=== PATIENT | female | born 1950 | race Two or more races ===

== ENCOUNTER 2016-11-27 07:17 | Observation (INO) | payer OTHER ==
[2016-11-27 07:21] VITALS: BMI 24.5
[2016-11-27] MEDS ORDERED: SODIUM CHLORIDE 500 ML IV STA (07:49)
--- NOTE | 2016-11-27 07:54 | PDOC ---
History of Present Illness - General Chief Complaint: Lightheaded Stated Complaint: SOB Time Seen by Provider: 11/27/16 07:38 - History of Present Illness Initial Comments: 11/27/16 07:51 66-year-old female history of hypertension and hyperlipidemia presents with 3 days of intermittent shortness of breath associated with lightheadedness when ambulating. She denies any chest pain. She reports the shortness of breath is worse at night and also worse when she sits up. Denies any exertional component of her shortness of breath. Denies fevers, chills, coughing. Has never had similar symptoms in the past. Denies any associated nausea, vomiting, diaphoresis. Denies lower extremity edema. She comes in today because she feels her shortness of breath is becoming more consistent. She reports she does not have a primary care doctor. Denies any surgeries in the past. Denies any asthma history. Denies any recent travel or long trips. Past History - Past Medical History Allergies/Adverse Reactions: Allergies Allergy/AdvReac Type Severity Reaction Status Date / Time No Known Allergies Allergy Verified 11/27/16 07:19 Home Medications: Ambulatory Orders Unobtainable [Unobtainable] 11/27/16 HTN: Yes Hypercholesterolemia: Yes - Psycho/Social/Smoking Cessation Hx Anxiety: No Suicidal Ideation: No Smoking History: Never smoked Have you smoked in the past 12 months: No Information on smoking cessation initiated: No Hx Alcohol Use: No Drug/Substance Use Hx: No Substance Use Type: None Review of Systems - Review of Systems Is the patient limited Tuvaluan proficient: No Constitutional: No: Symptoms Reported, See HPI, Chills, Diaphoresis, Fever, Loss of Appetite, Malaise, Night Sweats, Weakness, Weight Stable, Unintentional Wgt. Loss, Unexplained wgt Loss, Other HEENTM: No: Symptoms Reported, See HPI, Eye Pain, Blurred Vision, Tearing, Recent change in vision, Double Vision, Cataracts, Ear Pain, Ocular Prothesis, Ear Discharge, Nose Pain, Nose Congestion, Tinnitus, Nose Bleeding, Hearing Loss , Throat Pain, Throat Swelling, Mouth Pain, Dental Problems, Difficulty Swallowing, Mouth Swelling, Other Respiratory: Yes: Shortness of Breath, SOB at Rest Cardiac (ROS): Yes: Lightheadedness ABD/GI: No: Symptoms Reported, See HPI, Abdominal Distended, Abd. Pain w/ defecation, Blood Streaked Bowels, Constipated, Diarrhea, Difficulty Swallowing , Nausea, Poor Appetite, Poor Fluid Intake, Rectal Bleeding, Vomiting, Indigestion, Abdominal cramping, Tarry Stools, Other : No: Symptoms Reported, See HPI, Burning, Dysuria, Discharge, Frequency, Flank Pain, Hematuria, Incontinence, Pain, Urgency, Testicular Mass, Testicular Swelling, Lesions, Testicular Pain, Other Musculoskeletal: No: Symptoms Reported, See HPI, Back Pain, Gout, Joint Pain, Joint Swelling, Muscle Pain, Muscle Weakness, Neck Pain, Joint Stiffness, Other Integumentary: No: Symptoms Reported, See HPI, Bruising, Change in Color, Change in Hair/Nails, Dryness, Erythema, Flushing, Lesions, Lumps, Pallor, Pruritus, Rash, Sweating, Other Neurological: Yes: Dizziness Psychiatric: No: Anxiety, Depression, Frequent Crying, Stressors, Sleep Pattern Change, Emotional Problems, Mood Swings, Change in Appetite, Other Hematologic/Lymphatic: No: Symptoms Reported, See HPI, Anemia, Blood Clots, Easy Bleeding, Easy Bruising, Bleeding Diathesis, Lymph Node Abnormalities, Swollen Glands, Other All Other Systems: Reviewed and Negative *Physical Exam - Vital Signs Last Vital Signs Temp Pulse Resp BP Pulse Ox 98.2 F 64 18 164/97 100 11/27/16 07:19 11/27/16 07:19 11/27/16 07:19 11/27/16 07:19 11/27/16 07:19 - Physical Exam General Appearance: Yes: Nourished, Other (NAD) HEENT: positive: EOMI, PENELOPE, Normal ENT Inspection, Normal Voice, Symmetrical, TMs Normal, Pharynx Normal Neck: positive: Trachea midline, Supple Respiratory/Chest: positive: Lungs Clear, Normal Breath Sounds Cardiovascular: positive: Regular Rhythm, Bradycardia (rate 50s) Gastrointestinal/Abdominal: negative: Normal Bowel Sounds, Tender, Flat, Soft, Organomegaly, Pulsatile Mass, Increased Bowel Sounds, Decreased BS, Protuberent , Distended, Guarding, Rebound, Tenderness, Hernia, Mass, Hepatomegaly, Spleenomegaly, Other Musculoskeletal: negative: Normal Inspection, CVA Tenderness, CVA Tenderness (R) , CVA Tenderness (L), Decreased Range of Motion, Muscle Spasm, Vertebral Tenderness, Other Extremity: negative: Normal Capillary Refill, Normal Inspection, Normal Range of Motion, Tender (no LE edema), Pelvis Stable, Coldness, Cyanosis, Delayed Capillary Refill, Pedal Edema, Swelling, Calf Tenderness, Erythema, Inflammation , Other Neurologic: negative: lab assistant II-XII NML intact, Fully Oriented, Alert, Normal Mood/ Affect, Normal Response, Motor Strength 5/5, Abnormal Cranial NS, Respond to painful stimul, Responsive, EOM Palsy, Facial Droop, Numbness, Sensory Deficit, Finger to Nose, Confused, Disoriented, Depressed Affect, Babinski, Other Heart Score/ECG Review - History History: Slightly suspicious - Electrocardiogram EKG: Non specific repolarization disturbance - Age Age: 45-65 - Risk Factors Risk Factors Heart Score: Yes Hx Hypercholesterolemia, Yes Hx Hypertension Based on the list above the patient has:: 1-2 risk factors - Troponin Troponin: </= normal limit - Score Heart Score - Total: 3 #1 ECG reviewed & interpreted by me at: 08:00 11/27/16 08:07, sinus aleksandra, rate 52, normal axis and intervals, no CHRISTOS, T wave flattening lead III 11/27/16 08:07 ED Treatment Course - LABORATORY CBC & Chemistry Diagram: 11/27/16 08:17 11/27/16 08:17 Medical Decision Making - Medical Decision Making 11/27/16 08:07 66-year-old female hx of hypertension and hyperlipidemia presents with 3 days of intermittent shortness of breath that has become more constant over the last day. Shortness of breath associated with lightheadedness that exertion. Differential includes acute coronary syndrome with atypical presentation versus pneumonia versus PE. On exam, no wheezing or crackles to suggest asthma or PNA. Pt with no PE risk factors of recent surgery or immobility. -cbc, cmp, trop, dimer -cxr -reassess 11/27/16 16:34 Labs remarkable for elevated d-dimer. Troponin negative. Chest x-ray negative. CT PE study also negative. Patient continues to complain of intermittent shortness of breath and lightheadedness. Will admit FOR further cardiac monitoring and management. *DC/Admit/Observation/Transfer Diagnosis at time of Disposition: Shortness of breath at rest - Discharge Dispostion Condition at time of disposition: Stable Admit: Yes - Attestations Physician Attestion: 11/27/16 16:35 I, Dr. Loy Sotomayor MD, attest that this document has been prepared under my direction and personally reviewed by me in its entirety. I further attest, that it accurately reflects all work, treatment, procedures and medical decision -making performed by me.
[2016-11-27 08:32] LABS: BASOPHIL 1.3 % (0-2.0); EOSINOPHIL 2.3 % (0-4.5); MCH 30.1 pg (25.7-33.7); MEAN CELL VOLUME 88.5 fl (80-96); MEAN PLT VOLUME 8.9 fl (7.5-11.1); NEUTROPHILS 65.9 % (42.8-82.8); PLATELET COUNT 274 K/MM3 (134-434); RDW 13.8 % (11.6-15.6); WHITE BLOOD COUNT 10.3 K/mm3 (4.0-10.0)
[2016-11-27 08:50] LABS: ALBUMIN 3.8 g/dl (3.4-5.0); ANION GAP 6 (8-16); BILIRUBIN,TOTAL 0.6 mg/dL (0.2-1.0); CALCIUM 9.3 mg/dL (8.5-10.1); CO2 28 mmol/L (21-32); CREATININE 1.1 mg/dL (0.55-1.02); GLUCOSE,RANDOM 90 mg/dL (74-106); MAGNESIUM 2.1 mg/dL (1.8-2.4); SGOT/AST 21 U/L (15-37); SGPT/ALT 35 U/L (12-78); TOT PROT 7.3 g/dl (6.4-8.2)
[2016-11-27 08:58] LABS: ALK PHOS 74 U/L (45-117); CPK 118 IU/L (26-192); THYROID STIMULATING HORMONE 3.15 uIU/ml (0.358-3.74); TROPONIN I < 0.02 ng/ml (0.00-0.05)
[2016-11-27 09:55] LABS: URINE APPEARANCE CLEAR; URINE BILIRUBIN NEGATIVE (NEGATIVE); URINE BLOOD 1+ (NEGATIVE); URINE COLOR COLORLESS; URINE GLUCOSE (UA) NEGATIVE (NEGATIVE); URINE KETONE NEGATIVE (NEGATIVE); URINE LEUK ESTERASE NEGATIVE (NEGATIVE); URINE NITRITE NEGATIVE (NEGATIVE); URINE PROTEIN NEGATIVE (NEGATIVE); URINE UROBILINOGEN NEGATIVE mg/dL (0.2-1.0)
[2016-11-27 10:26] LABS: URINE MUCUS RARE; URINE RBC 1 /hpf (0-3); URINE WBC 1 /hpf (3-5)
--- NOTE | 2016-11-27 14:39 | EKG ---
Test Reason : Blood Pressure : / mmHG Vent. Rate : 052 BPM Atrial Rate : 052 BPM P-R Int : 162 ms QRS Dur : 086 ms QT Int : 438 ms P-R-T Axes : 005 002 030 degrees QTc Int : 407 ms SINUS BRADYCARDIA OTHERWISE NORMAL ECG NO PREVIOUS ECGS AVAILABLE Confirmed by MELINDA KUMAR MD ([id number]) on 11/27/2016 2:39:43 PM Referred By: Confirmed By:MELINDA KUMAR MD
--- NOTE | 2016-11-27 14:57 | HP ---
CHIEF COMPLAINT: 3 days intermittent SOB and lightheadedness PCP: HISTORY OF PRESENT ILLNESS: 66 y/o F with PMH HTN, HLD, who presents to ED for SOB and lightheadedness over the past three days. During this time, pt has intermittently felt as if she could not breathe, described as a choking sensation. Her SOB has been alleviated by lying down and is worsened by sitting up. Pt also has felt dizzy when she walks 5-6 blocks to the store, but has never felt as if she would pass out; she has just felt off balance and as if her heart was racing during these instances. She has had a dry cough. Pt mentioned that she has had a lot of stress recently, as her has liver cancer and she lost her mother this past month. She has recently felt very emotional and has been overexerting herself at home. Pt decided to come in today for her symptoms, since she was not feeling "like herself," and wanted to figure out what was going on. She was at [facility] last week for similar symptoms. Denies recent travel, fever, chills, chest pain, melena, hematochezia, dysuria, long travel, lower extremity pain or swelling, nightsweats, weight changes. ER course was notable for: (1) IV NS (2) EKG: sinus bradycardia (3) Recent Travel: none PAST MEDICAL HISTORY: HTN, HLD PAST SURGICAL HISTORY: none Social History: -Sister in law visits frequently and often smokes in the bathroom, possible second hand smoke exposure Smoking: denies Alcohol: denies Drugs: denies Family History: -Mother this past month from [place] -Does not know father -Brother: HLD, DM Allergies No Known Allergies Allergy (Verified 11/27/16 07:19) HOME MEDICATIONS: Home Medications Medication Instructions Recorded Unobtainable [Unobtainable] 11/27/16 -Pt does not know name of medications, but takes meds for her HTN, HLD. -She does not know the name of the pharmacy she goes to REVIEW OF SYSTEMS CONSTITUTIONAL: Absent: fever, chills, diaphoresis, generalized weakness, malaise, loss of appetite, weight change HEENT: Absent: rhinorrhea, nasal congestion, throat pain, throat swelling, difficulty swallowing, mouth swelling, ear pain, eye pain, visual changes CARDIOVASCULAR: Absent: chest pain, syncope, palpitations, irregular heart rate, lightheadedness , peripheral edema RESPIRATORY: Absent: cough, shortness of breath, dyspnea with exertion, orthopnea, wheezing, stridor, hemoptysis GASTROINTESTINAL: Absent: abdominal pain, abdominal distension, nausea, vomiting, diarrhea, constipation, melena, hematochezia GENITOURINARY: Absent: dysuria, frequency, urgency, hesitancy, hematuria, flank pain, genital pain MUSCULOSKELETAL: Absent: myalgia, arthralgia, joint swelling, back pain, neck pain SKIN: Absent: rash, itching, pallor HEMATOLOGIC/IMMUNOLOGIC: Absent: easy bleeding, easy bruising, lymphadenopathy, frequent infections ENDOCRINE: Absent: unexplained weight gain, unexplained weight loss, heat intolerance, cold intolerance NEUROLOGIC: Absent: headache, focal weakness or paresthesias, dizziness, unsteady gait, seizure, mental status changes, bladder or bowel incontinence PSYCHIATRIC: Absent: anxiety, depression, suicidal or homicidal ideation, hallucinations. PHYSICAL EXAMINATION Vital Signs - 24 hr 11/27/16 11/27/16 07:19 08:39 Temperature 98.2 F Pulse Rate 64 66 Respiratory 18 Rate Blood Pressure 164/97 O2 Sat by Pulse 100 99 Oximetry (%) GENERAL: Awake, alert, and fully oriented, in no acute distress. HEAD: Normal with no signs of trauma. EYES: Pupils equal, round and reactive to light, extraocular movements intact, sclera anicteric, conjunctiva clear. EARS, NOSE, THROAT: oropharynx clear without exudates. Moist mucous membranes. NECK: Normal range of motion, supple without lymphadenopathy, JVD, or masses. LUNGS: Breath sounds equal, clear to auscultation bilaterally. No wheezes, and no crackles. No accessory muscle use. HEART: Regular rate and rhythm, normal S1 and S2 without murmur, rub or gallop. ABDOMEN: Soft, nontender, not distended, normoactive bowel sounds, no guarding, no rebound, no masses. MUSCULOSKELETAL: Normal range of motion at all joints. No bony deformities or tenderness. No CVA tenderness. UPPER EXTREMITIES: 2+ radial pulses, warm, well-perfused. No cyanosis. No clubbing. No peripheral edema. LOWER EXTREMITIES: 2+ posterior tibial pulses, warm, well-perfused. No calf tenderness. No peripheral edema. NEUROLOGICAL: Cranial nerves II-XII intact. PSYCH: very anxious Laboratory Results - last 24 hr 11/27/16 11/27/16 11/27/16 08:17 08:17 08:17 WBC 10.3 H RBC 4.54 Hgb 13.6 Hct 40.1 MCV 88.5 MCH 30.1 MCHC 34.0 RDW 13.8 Plt Count 274 MPV 8.9 Neutrophils % 65.9 Lymphocytes % 24.4 Monocytes % 6.1 Eosinophils % 2.3 Basophils % 1.3 D-Dimer Sodium 142 Potassium 4.0 Chloride 108 H Carbon Dioxide 28 Anion Gap 6 L BUN 14 Creatinine 1.1 H Creat Clearance w eGFR 49.85 Random Glucose 90 Calcium 9.3 Magnesium 2.1 Total Bilirubin 0.6 AST 21 ALT 35 Alkaline Phosphatase 74 Creatine Kinase 118 Troponin I < 0.02 B-Natriuretic Peptide 126.49 H Total Protein 7.3 Albumin 3.8 TSH 3.15 3.09 Urine Color Urine Appearance Urine pH Urine Protein Urine Glucose (UA) Urine Ketones Urine Blood Urine Nitrite Urine Bilirubin Urine Urobilinogen Ur Leukocyte Esterase Urine RBC Urine WBC Ur Epithelial Cells Urine Mucus 11/27/16 11/27/16 08:20 09:30 WBC RBC Hgb Hct MCV MCH MCHC RDW Plt Count MPV Neutrophils % Lymphocytes % Monocytes % Eosinophils % Basophils % D-Dimer 289 H Sodium Potassium Chloride Carbon Dioxide Anion Gap BUN Creatinine Creat Clearance w eGFR Random Glucose Calcium Magnesium Total Bilirubin AST ALT Alkaline Phosphatase Creatine Kinase Troponin I B-Natriuretic Peptide Total Protein Albumin TSH Urine Color Colorless Urine Appearance Clear Urine pH 7.0 Urine Protein Negative Urine Glucose (UA) Negative Urine Ketones Negative Urine Blood 1+ H Urine Nitrite Negative Urine Bilirubin Negative Urine Urobilinogen Negative Ur Leukocyte Esterase Negative Urine RBC 1 Urine WBC 1 Ur Epithelial Cells Rare Urine Mucus Rare IMAGING/TESTS -CXR: WNL -CTA: No evidence of PE, mild bilateral upper and lower lung field ground glass infiltrates -EKG: sinus bradycardia, HR 52 ASSESSMENT/PLAN: 66 y/o F with PMH HTN, HLD, who presented to the ED with intermittent SOB and lightheadedness for the past 3 days. Pt admitted to obs for SOB secondary to anxiety. #SOB secondary to anxiety r/o PE -Pt under a lot of emotional stress, lost mother this month, with liver cancer -D-dimer 289 -CTA: no evidence of PE -No recent travel, tachycardia, tachypnea, prior PE/DVT, malignancy, swelling or pain in lower extremities -Check 02 sat #r/o ACS, possible arrythmia -low possibility of atypical chest pain -pt has risk fx of HTN, HLD -first troponin negative -F/u next step of troponins -Tele monitoring #HTN-uncontrolled -164/97 in ED -Continue home medications (unavailable) #HLD -Continue home medications (unavailable) #DVT prophylaxis -EAM F/E/N -IV NS @ 75 mls/hr -Monitor electrolytes -Low Na diet -will F/u [facility] paperwork Disposition obs Visit type - Emergency Visit Emergency Visit: Yes Care time: The patient presented to the Emergency Department on the above date and was hospitalized for further evaluation of their emergent condition. - New Patient This patient is new to me today: Yes Date on this admission: 11/27/16 - Critical Care Critical Care patient: No
[2016-11-27] MEDS ORDERED: SODIUM CHLORIDE 1,000 ML IV SCH (15:30)
--- NOTE | 2016-11-27 16:39 | CON.CARD ---
Consult Consult Specialty:: Cardiology Reason for Consultation:: PARRA - History of Present Illness Chief Complaint: PARRA. Lightheadedness History of Present Illness: This is a 66 year old female with a PMH of HTN and HLD. She presented to the ED with the complaint of lightheadedness and PARRA over above 3 days. She denied chest pain. CXR negative. EKG sinus bradycardia at 52 BPM with normal intervals , normal axis, and NSSTTW changes. Chest CT negative for a PE. The above symptoms seems to have resolved and presently she feels well. Troponin Level 0.02. - Alcohol/Substance Use Hx Alcohol Use: No - Smoking History Smoking history: Never smoked Have you smoked in the past 12 months: No Home Medications - Allergies Allergies/Adverse Reactions: Allergies Allergy/AdvReac Type Severity Reaction Status Date / Time No Known Allergies Allergy Verified 11/27/16 07:19 - Home Medications Home Medications: Ambulatory Orders Unobtainable [Unobtainable] 11/27/16 Review of Systems Unable to obtain ROS, reason: As per HPI Vital Signs: Vital Signs Temperature 98.2 F 11/27/16 07:19 Pulse Rate 66 11/27/16 08:39 Respiratory Rate 18 11/27/16 07:19 Blood Pressure 164/97 11/27/16 07:19 O2 Sat by Pulse Oximetry (%) 99 11/27/16 08:39 Constitutional: Yes: Well Nourished, No Distress Neck: Yes: WNL Respiratory: Yes: CTA Bilaterally Gastrointestinal: Yes: Soft Cardiovascular: Yes: Regular Rate and Rhythm Heart Sounds: Yes: S1, S2 ( No MRHG) Extremities: Yes: WNL Edema: No Neurological: Yes: Alert, Oriented (Non focal) Psychiatric: Yes: WNL - Other Data Labs, Other Data: CBC, BMP 11/27/16 08:17 11/27/16 08:17 Troponin, BNP 11/27/16 08: Troponin I < 0.02 B-Natriuretic Peptide 126.49 H Troponin, BNP 11/27/16 08:17 Troponin I < 0.02 B-Natriuretic Peptide 126.49 H Assessment/Plan 66 year old female with a PMH of HTN and HLD. She presented to the ED with the complaint of lightheadedness and PARRA over above 3 days. She denied chest pain. CXR negative. EKG sinus bradycardia at 52 BPM with normal intervals, normal axis , and NSSTTW changes. Chest CT negative for a PE. The above symptoms seems to have resolved and presently she feels well. Troponin Level 0.02. Above symptoms are somewhat vague, but may be related to the bradycardia. She did not know her home medications. If she is on an AV alannah blocking medication such as a beta fawn or non-dihydropyridine calcium channel fawn (ie verapamil or diltiazem), than the dose should be lowered. She would benefit from a stress echocardiogram to document good heart rate augmentation and to evaluate PARRA.
--- NOTE | 2016-11-27 17:06 | HP ---
Admitting History and Physical - Admission Chief Complaint: SOB History of Present Illness: 66 yr old woman with HTN and HLD presents to the ED with worsening SOB for past 3 days, was unable to lay flat last night, worse with exertion. This morning she took a cab to the ED for evaluation. She was in her usual state of health yesterday morning. Last week she had a similar episode of shortness of breath for which she was evaluated for at [facility](took a cab), says she underwent a stress test and echo. says she has medications at home for BP and cholesterol. Also endorses recent emotional stress due to decline in her 's health. denies hx of GA, stroke, DM. History Source: Patient Limitations to Obtaining History: Language Barrier (luxembourgish phone enterpretor used # [id number]) - Smoking History Smoking history: Never smoked Have you smoked in the past 12 months: No - Alcohol/Substance Use Hx Alcohol Use: No - Social History Usual Living Arrangement: Yes: With Spouse ADL: Independent History of Recent Travel: No Home Medications - Allergies Allergies/Adverse Reactions: Allergies Allergy/AdvReac Type Severity Reaction Status Date / Time No Known Allergies Allergy Verified 11/27/16 07:19 - Home Medications Home Medications: Ambulatory Orders Unobtainable [Unobtainable] 11/27/16 Physical Examination Vital Signs: Vital Signs Temperature 98.2 F 11/27/16 07:19 Pulse Rate 66 11/27/16 08:39 Respiratory Rate 18 11/27/16 07:19 Blood Pressure 164/97 11/27/16 07:19 O2 Sat by Pulse Oximetry (%) 99 11/27/16 08:39 Constitutional: Yes: Well Nourished, Calm Eyes: Yes: Conjunctiva Clear, EOM Intact HENT: Yes: Atraumatic, Normocephalic Neck: Yes: Supple, Trachea Midline. No: Lymphadenopathy Cardiovascular: Yes: Regular Rate and Rhythm. No: Murmur Respiratory: Yes: Regular, CTA Bilaterally Gastrointestinal: Yes: Normal Bowel Sounds, Soft Musculoskeletal: Yes: WNL Extremities: Yes: WNL. No: Erythema Edema: No Peripheral Pulses WNL: Yes Neurological: Yes: Alert, Oriented Psychiatric: Yes: Alert, Oriented Labs: CBC, BMP 11/27/16 08:17 11/27/16 08:17 Assessment/Plan 66 yr old woman with HTN and HLD presents with worsening SOB for past 3 days placed on observation to r/o GA - I was unable to locate records for her at preferred pharmacy ([facility] ), no patient with that birthday and name has a file or picked up prescriptions in their pharmacy - Discussed with [facility] Medical records for any patient records for the past year, echo, or stress test, or ED visit for patient with her name and birthday (on repeat interview pt briefly said her bday was 1951, and she has a middle of [place]), staff found no records. as there is no social security number listed, no other identifiers to locate patient records at this time. - pt says she will not be able to bring her medications to the hospital and she was not given any discharge paperwork from [facility] #SOB with heart score of 3, concern for atypical presentation of ACS in elderly woman - cardiology consult Dr. 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 - New Patient This patient is new to me today: Yes Date on this admission: 11/27/16 - Critical Care Critical Care patient: No
--- NOTE | 2016-11-27 17:17 | PN ---
Teaching Attending Note Name of Resident: Jennifer Laird ATTENDING PHYSICIAN STATEMENT I saw and evaluated the patient. I reviewed the resident's note and discussed the case with the resident. I agree with the resident's findings and plan as documented. SUBJECTIVE:66yo F with PMH HTN and dyslipidemia c/o SOB. SOB not related to exertion or action. occasionally assoc with dizzyness. states she is able to walk several miles without getting SOB or symptoms. she been having these symptoms intermittently over the past year. was seen at [facility] for these same complaints. a stress test was done (which she presumes in negative because she was discharged). but never followed up wtih a doctor. states she does not like to go to the clinic because she sees a different doctor everytime she goes. claims medication compliance but has not recall the names of medications. never smokers. mother last month of CAD in her 80's. no other family hx. denies cough, palpitations, orthopnea, pedal edema. or recent medication change pt admits to many family stressors as her was diagnosed with liver malignancy and prognosis is grave. and her mother passing away last month OBJECTIVE: Last Vital Signs Temp Pulse Resp BP Pulse Ox 98.2 F 66 18 164/97 99 11/27/16 07:19 11/27/16 08:39 11/27/16 07:19 11/27/16 07:19 11/27/16 08:39 General NAD CV S1 S2 RRR no murmur/rub/gallop Lungs CTA B/L no wheezing/rales/rhonchi Abdomen soft NT/ND extremiteis no pedal edema ASSESSMENT AND PLAN: 66yo F with PMH HTN and dyslipidemia c/o SOB 1. SOB- can be symptomatic bradycardia vs atypical CP vs anxiety. HR responds to activity. resting HR 64 increased to 72 with minimal activity. 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 cardiac enzymes Q6H. if can obtain stress results will likely not require to repeat stress at this time. check echo. obtain home medication list to see if pt is beta fawn or CCB that can be related to bradycardia. 2. HTN- above goal. confirm home meds and start as needed 3. dyslipidemia- re-start home meds 4. Dvt ppx- EAM
[2016-11-27] MEDS: HYDROCHLOROTHIAZIDE 12.5 MG CAPSULE (FP) PO SCH (18:58)
[2016-11-28 08:04] LABS: MCH 29.5 pg (25.7-33.7); MCHC 33.4 g/dl (32.0-36.0); MEAN CELL VOLUME 88.4 fl (80-96); MEAN PLT VOLUME 9.3 fl (7.5-11.1); PLATELET COUNT 251 K/MM3 (134-434); RDW 14.1 % (11.6-15.6)
[2016-11-28 09:00] LABS: CHOLESTEROL 154 mg/dL (50-200); LDL CHOLESTEROL (ONLY SJRH) 90 mg/dL (5-100)
[2016-11-28] MEDS: HYDROCHLOROTHIAZIDE 12.5 MG CAPSULE (FP) PO SCH (09:36)
[2016-11-28 09:53] LABS: ANION GAP 8 (8-16); CO2 27 mmol/L (21-32)
[2016-11-28] MEDS ORDERED: HYDROCHLOROTHIAZIDE 12.5 MG CAPSULE (FP) PO SCH (10:00)
[2016-11-28 10:04] LABS: CALCIUM 9.3 mg/dL (8.5-10.1); CREATININE 1.1 mg/dL (0.55-1.02); GLUCOSE,RANDOM 80 mg/dL (74-106)
[2016-11-28 10:54] LABS: TROPONIN I < 0.02 ng/ml (0.00-0.05)
[2016-11-28] MEDS ORDERED: ALBUTEROL SO4 6.7 GM HFA INHALER IH PRN (12:34)
--- NOTE | 2016-11-28 13:53 | PN ---
Teaching Attending Note Name of Resident: Jennifer Laird ATTENDING PHYSICIAN STATEMENT I saw and evaluated the patient. I reviewed the resident's note and discussed the case with the resident. I agree with the resident's findings and plan as documented. SUBJECTIVE:continues to have intermittent periods of SOB. no asoc CP. denies fever, chills, cough. OBJECTIVE: Last Vital Signs Temp Pulse Resp BP Pulse Ox 98.4 F 77 18 121/79 100 11/28/16 10:00 11/28/16 10:00 11/28/16 10:00 11/28/16 10:00 11/28/16 09:38 General NAD CV S1 S2 RRR no murmur/rub/gallop no chest wall tenderness Lungs CTA B/L no wheezing/rales/rhonchi Abdomen soft NT/ND extremiteis no pedal edema ASSESSMENT AND PLAN: 66yo F with PMH HTN and dyslipidemia c/o SOB 1. SOB- can be symptomatic bradycardia vs atypical CP vs anxiety. on monitor noted to have periods of sinus tachycardia. cardiac enzymes neg x2. obtained records from [facility] states Stress test was negative but recommend cardiac cath as outpatient. will place call out to Dr Mendosa to discuss current stay as her symptoms are in less than a week. possible some anxiety and small airway disease (seen on CT) contributing factor but concerned give symptoms. will hold stress test at this time. no point at repeating at this time. 2. HTN- above goal. was on acei. will re-start 3. dyslipidemia- re-start statin 4. Dvt ppx- EAM
--- NOTE | 2016-11-28 16:18 | PN ---
Physical Exam: SUBJECTIVE: Patient seen and examined at bedside today. Pt states that she is still feeling SOB, and that it is unchanged from before. Pt in NSR on monitor, on 2L NC 02sat 98%. She states that she is feeling very frustrated and anxious. Denies any chest pain, N/V, or diaphoresis. OBJECTIVE: Vital Signs Period Temp Pulse Resp BP Sys/Mckeon Pulse Ox Last 24 Hr 97.9 F-98.4 F 65-101 18-20 107-154/73-88 98-100 GENERAL: The patient is awake, alert, and fully oriented, in no acute distress. HEAD: Normal with no signs of trauma. EYES: PERRL, extraocular movements intact, sclera anicteric, conjunctiva clear. No ptosis. NECK: Trachea midline, full range of motion, supple. LUNGS: Breath sounds equal, clear to auscultation bilaterally, no wheezes, no crackles, no accessory muscle use. HEART: Regular rate and rhythm, S1, S2 without murmur, rub or gallop. ABDOMEN: Soft, nontender, nondistended, normoactive bowel sounds, no guarding, no rebound, no hepatosplenomegaly, no masses. EXTREMITIES: 2+ posterior tibial pulses, warm, well-perfused, no edema. NEUROLOGICAL: Cranial nerves II through XII grossly intact. Laboratory Results - last 24 hr 11/27/16 11/28/16 11/28/16 19:30 06:05 06:05 WBC 10.0 RBC 4.32 Hgb 12.7 Hct 38.2 MCV 88.4 MCH 29.5 MCHC 33.4 RDW 14.1 Plt Count 251 MPV 9.3 Sodium 142 Potassium 4.1 Chloride 107 Carbon Dioxide 27 Anion Gap 8 BUN 15 Creatinine 1.1 H Random Glucose 80 Calcium 9.3 Troponin I < 0.02 Triglycerides Cholesterol Total LDL Cholesterol HDL Cholesterol 11/28/16 11/28/16 06:05 06:05 WBC RBC Hgb Hct MCV MCH MCHC RDW Plt Count MPV Sodium Potassium Chloride Carbon Dioxide Anion Gap BUN Creatinine Random Glucose Calcium Troponin I < 0.02 Cancelled Triglycerides 97 Cholesterol 154 Total LDL Cholesterol 90 HDL Cholesterol 51 Active Medications Generic Name Dose Route Start Last Admin Trade Name Freq PRN Reason Stop Dose Admin Albuterol Sulfate 1 puff 11/28/16 12:34 Ventolin Hfa Inhaler - IH Q4H PRN SHORT OF BREATH/WHEEZING Hydrochlorothiazide 12.5 mg 11/27/16 18:00 11/28/16 09:36 Hctz - PO 12.5 mg DAILY KAYLYNN Administration ASSESSMENT/PLAN: 66 y/o F with PMH HTN, HLD, who presented to the ED with intermittent SOB and lightheadedness for the past 3 days. Pt admitted to obs for SOB secondary to anxiety. #SOB secondary to anxiety -Pt still feeling SOB this AM -Started on Ventolin rescue inhaler 1 puff q4h PRN -Lorazepam 0.25mg IM administered once for increased anxiety -three sets of trops negative -Pt last seen at [facility] one week ago, did not follow up with cardio -Negative stress test there, no need to repeat -Dr. Mendosa suggests cardiac cath tomorrow, pt will be NPO after midnight #HTN-uncontrolled -improving, most recent readin/86 -Pt on hydrochlorothiazide 12.5mg PO #HLD -Pt started on low dose statin, lipitor 10mg PO HS #DVT prophylaxis -EAM F/E/N -Monitor electrolytes -NPO after midnight Disposition -For transfer tomorrow for cardiac cath Visit type - Emergency Visit Emergency Visit: No - New Patient This patient is new to me today: No - Critical Care Critical Care patient: No
--- NOTE | 2016-11-28 16:20 | PN ---
Progress Note, Physician Chief Complaint: Presently comfortable History of Present Illness: This is a 66 year old female with a PMH of HTN and HLD. She presented to the ED with the complaint of lightheadedness and PARRA over above 3 days. She denied chest pain. CXR negative. EKG sinus bradycardia at 52 BPM with normal intervals , normal axis, and NSSTTW changes. Chest CT negative for a PE. The above symptoms seems to have resolved and presently she feels well. Troponin Level 0.02. I had a discussion with Dr. Mario Mendosa [phone] who had performed a CT angio and nuclear stress test at [facility] about 2 weeks ago and concluded that she had LAD disease. Given this, will transfer to [facility] for cardiac cath. - Current Medication List Current Medications: Active Medications Albuterol Sulfate (Ventolin Hfa Inhaler -) 1 puff IH Q4H PRN PRN Reason: SHORT OF BREATH/WHEEZING Hydrochlorothiazide (Hctz -) 12.5 mg PO DAILY KAYLYNN Last Admin: 11/28/16 09:36 Dose: 12.5 mg - Objective Vital Signs: Vital Signs Temperature 98.0 F 11/28/16 15:42 Pulse Rate 101 H 11/28/16 15:42 Respiratory Rate 18 11/28/16 10:00 Blood Pressure 132/86 11/28/16 15:42 O2 Sat by Pulse Oximetry (%) 100 11/28/16 09:38 Constitutional: Yes: No Distress Neck: Yes: WNL Cardiovascular: Yes: Regular Rate and Rhythm, S1, S2 ( No MHRG) Respiratory: Yes: CTA Bilaterally Gastrointestinal: Yes: Soft Extremities: Yes: WNL Edema: No Neurological: Yes: WNL Psychiatric: Yes: WNL Labs: CBC, BMP 11/28/16 06:05 11/28/16 06:05 Assessment/Plan 66 year old female with a PMH of HTN and HLD. She presented to the ED with the complaint of lightheadedness and PARRA over above 3 days. She denied chest pain. CXR negative. EKG sinus bradycardia at 52 BPM with normal intervals, normal axis , and NSSTTW changes. Chest CT negative for a PE. The above symptoms seems to have resolved and presently she feels well. Troponin Level 0.02. I had a discussion with Dr. Mario Mendosa [phone] who had performed a CT angio and nuclear stress test at [facility] about 2 weeks ago and concluded that she had LAD disease. Given this, will transfer to [facility] for cardiac cath.
[2016-11-28 20:22] VITALS: BP 128/75; PULSE 106; TEMP 98.6
[2016-11-28] MEDS ORDERED: ATORVASTATIN CA 40 MG TABLET (FP) PO SCH (22:00)
[2016-11-28] MEDS ORDERED: ATORVASTATIN CA 10 MG TABLET (FP) PO SCH (22:00)
== END 2016-11-28 20:00 | disposition short-term general hospital (02) ==
LOC: JER 07:17 → JERBED 16:36 → J4W 19:56
PROVIDERS: ADMIT Internal Medicine; ATTEND Internal Medicine
PROC: 3E0337Z Introduction of Electrolytic and Water Balance Substance into Peripheral Vein, Percutaneous Approach (ICD-10-PCS; principal; 2016-11-27)
PROC: 3E013GC Introduction of Other Therapeutic Substance into Subcutaneous Tissue, Percutaneous Approach (ICD-10-PCS; 2016-11-27)
DX: R06.02 Shortness of breath (principal); I10 Essential (primary) hypertension; E78.5 Hyperlipidemia, unspecified; R00.1 Bradycardia, unspecified; R79.89 Other specified abnormal findings of blood chemistry
CPT/HCPCS: 36415; 71020-TC; 71275-TC; 80048; 80053; 80061; 81003; 81015; 83721; 83735; 83880; 84443; 84484; 85025; 85027; 85379; 93005; 93010; 99284-25; G0378

== ENCOUNTER 2018-12-10 10:18 | Emergency (ER) | payer OTHER ==
[2018-12-10 10:41] VITALS: TEMP 98.3; BMI 26.0
--- NOTE | 2018-12-10 10:52 | PDOC ---
History of Present Illness - General Chief Complaint: Blood Pressure Problem Stated Complaint: Blood Pressure Problem History Source: Patient Exam Limitations: No Limitations - History of Present Illness Initial Comments: HPI: 68 y/o female presenting to [facility] ER complaining of weakness for the past week and intermittent diffuse left shoulder pain since waking from sleep this morning. Pt describes the pain as a dull pain that comes and goes. Worse with movement of the left arm. Suspects it is related to her sleeping position. Also expressed concern that her blood pressure was elevated. She has been working with her PCP for better BP control. Started taking Amlodipine-Olmesartan 5-40mg two weeks ago. Denies chest pain, back pain, or shortness of breath. 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 Endorses increased urinary frequency x1 week. MSK: Denies recent trauma Skin: Denies new rashes Neuro: Denies new numbness or tingling or weakness Endocrine: Denies polyuria Heme: Denies bleeding or bruising Physical Examination: Constitutional: Well-developed, well-nourished elderly adult female in no acute distress or obvious discomfort. Found semi-fowlers on hospital bed. Alert and oriented x4. Answered all questions appropriately and completely. Speech was non -labored, non-pressured. Able to stand and change into hospital gown as well as ambulate unassisted without difficulty. Head: Normocephalic. No obvious external signs of trauma. Cardiovascular / Chest: Regular rate and regular rhythm. No murmur, rubs, clicks , or gallops. Peripheral pulses: radial pulses full. No anterior or posterior chest wall tenderness. No pretibial edema. Respiratory: Breathing unlabored. Equal chest rise and fall. Clear to auscultation bilaterally. No stridor, no wheezing, no rhonchi. Gastrointestinal: abdomen is soft, non-tender, non-distended. Neuro: Alert and oriented. Moving all four extremities spontaneously. Gait normal. Skin: Warm, dry, and intact. : No R or L CVA tenderness. Psych: Affect: mildly concerned. Mood: normal. MDM: *Reviewed vital signs, nursing notes, and prior visit documentation (if available). HEART Score for Major Cardiac Events RESULT SUMMARY: 1 points Low Score (0-3 points) Risk of MACE of 0.9-1.7%. INPUTS: History > 0 = Slightly suspicious EKG > 0 = Normal Age > 0 = <45 Risk factors > 1 = 1-2 risk factors Initial troponin > 0 = ?normal limit 68 y/o female presenting with left shoulder pain, generalized weakness, and increased urinary frequency. Afebrile. Vitals unremarkable for hypotension or tachycardia. Physical exam as described above. Suspect shoulder pain is likely secondary to sleeping position. EKG unremarkable for ischemic changes. Troponin not elevated. Will not repeat as symptoms started >3hrs ago. Low suspicion for ACS, dislocation, or bony injury. UA remarkable for leukocyte esterase and pyuria. Suspect acute cystitis given malaise and urinary frequency. No leukocytosis. Will prescribe 7 day course of Macrobid. Discussed physical exam and laboratory results with pt. Answered all questions. Provided return precautions. Pt expressed verbal understanding and agreement with plan to discharge home with outpatient follow up. Provided copies of today s results. John Swartz M.D., PGY2 Emergency Medicine Resident Past History - Past Medical History Allergies/Adverse Reactions: Allergies Allergy/AdvReac Type Severity Reaction Status Date / Time No Known Allergies Allergy Verified 11/27/16 07:19 Home Medications: Ambulatory Orders Atorvastatin Ca [Lipitor] 20 mg PO HS 11/28/16 Metoprolol Tartrate 50 mg PO DAILY 11/28/16 Amlodipine Bes/Olmesartan Med [Amlodipine-Olmesartan 5-40 mg] 1 each PO DAILY Aspirin [Aspirin EC] 81 mg PO DAILY 12/10/18 Nitrofurantoin Monohyd/M-Cryst [Macrobid -] 100 mg PO BID #14 capsule 12/10/18 COPD: No HTN: Yes Hypercholesterolemia: Yes - Immunization History Immunization Up to Date: Yes - Suicide/Smoking/Psychosocial Hx Smoking History: Never smoked Have you smoked in the past 12 months: No Information on smoking cessation initiated: No Hx Alcohol Use: No Drug/Substance Use Hx: No Substance Use Type: None *Physical Exam - Vital Signs Last Vital Signs Temp Pulse Resp BP Pulse Ox 98.3 F 81 17 143/79 98 12/10/18 10:37 12/10/18 10:37 12/10/18 10:37 12/10/18 10:37 12/10/18 10:37 Vital Signs - Vital Signs #1 Blood Pressure: 159/75 (@11:40) MAP: 103 BP Location: Right Arm Blood Pressure Position: Sitting Pulse Rate: 77 Respiratory Rate: 22 O2 Sat by Pulse Oximetry (%): 94 Oxygen Delivery Method: Room Air #2 Pulse Rate: 70 (@13:51) Respiratory Rate: 18 O2 Sat by Pulse Oximetry (%): 97 Oxygen Delivery Method: Room Air #3 Blood Pressure: 128/75 (@14:02) MAP: 92 BP Location: Left Arm Blood Pressure Position: Sitting Pulse Rate: 72 Respiratory Rate: 18 O2 Sat by Pulse Oximetry (%): 100 Oxygen Delivery Method: Room Air ED Treatment Course - LABORATORY CBC & Chemistry Diagram: 12/10/18 11:30 12/10/18 11:30 *DC/Admit/Observation/Transfer Diagnosis at time of Disposition: Generalized weakness, Urinary frequency Left shoulder pain Qualifiers: Chronicity: acute Qualified Code(s): M25.512 - Pain in left shoulder - Discharge Dispostion Disposition: HOME Condition at time of disposition: Good Decision to Admit order: No - Prescriptions Prescriptions: Nitrofurantoin Monohyd/M-Cryst [Macrobid -] 100 mg PO BID #14 capsule - Referrals Referrals: Iqra Reyna MD [Primary Care Provider] - Rafa Baker MD [Staff Physician] - - Patient Instructions Printed Discharge Instructions: DI for Urinary Tract Infection (UTI), DI for Shoulder Pain Additional Instructions: Usted fue visto hoy por debilidad y dolor en el hombro lisbeth. Mota electrocardiograma y anlisis de mere fueron normales. El dolor de hombro puede ser un dolor muscular. Mota anlisis de orina mostr que puede tener momo infeccin del tracto urinario. Esta puede ser la causa de mota debilidad y aumento de la miccin. Le dieron momo dosis steven de un antibitico llamado Macrobid. He enviado momo receta de Macrobid (un antibitico) a mota farmacia. Tmelo blair se indica en el prospecto. No exceda la dosis recomendada. Puede nay el contador Tylenol o Advil segn sea necesario para el dolor. Tmelo blair se indica en el prospecto. No exceda la dosis recomendada. Mota presin arterial se elev hoy en el departamento de emergencias. Es probable que esto no sea la causa de nathan sntomas. Sin embargo, debe analizar mota presin arterial con mtoa mdico de atencin primaria. Puede ser hora de cambiar o reiniciar mota medicamento. Evan un seguimiento con mota mdico de atencin primaria dentro de los prximos 3- 4 de la fuente. Deber llamar para hacer momo elysia. El nmero est incluido en juice paquete. Se adjunta momo copia de los resultados de hoy a juice paquete. Llvelo a la elysia para que mota mdico pueda revisarlos. Claudia puede hacer un seguimiento con un cardilogo. He introducido momo referencia para que veas al Dr. Baker. Deber llamar para hacer momo elysia. El nmero est incluido en juice paquete. Se adjunta momo copia de los resultados de hoy a juice paquete. Llvelo a la elysia para que mota mdico pueda revisarlos. Dirjase al departamento de emergencias ms cercano si mota afeccin empeora o siente que necesita momo evaluacin de emergencia adicional. You were seen today for weakness and left shoulder pain. Your EKG and blood work were normal. The shoulder pain may be a muscle ache. Your urine test showed you may have a urinary tract infection. This may be the cause of your weakness and increased urination. You were given a single dose of an antibiotic called Macrobid. I have sent a prescription for Macrobid (an antibiotic) to your pharmacy. Take as directed on the package insert. Do not exceed the recommended dosage. You can take over the counter Tylenol or Advil as needed for pain. Take as directed on the package insert. Do not exceed the recommended dosage. Your blood pressure was elevated today in the emergency department. This is not likely to be the cause of your symptoms. However, you should discuss your blood pressure with your primary care doctor. It may be time to change or restart your medication. Follow up with your primary care doctor within the next 3-4 days. You will need to call to make an appointment. The number is included in this packet. A copy of todays results are attached to this packet. Take it to the appointment so your doctor can review them. You can also follow up with a tower supervisor. I have entered a referral for you to see Dr. Baker. You will need to call to make an appointment. The number is included in this packet. A copy of todays results are attached to this packet. Take it to the appointment so your doctor can review them. Go to the nearest emergency department if your condition worsens or you feel like you need additional emergency evaluation. Print Language: MONTENEGRIN - Post Discharge Activity
--- NOTE | 2018-12-10 11:36 | EKG ---
Test Reason : Blood Pressure : / mmHG Vent. Rate : 077 BPM Atrial Rate : 077 BPM P-R Int : 148 ms QRS Dur : 088 ms QT Int : 368 ms P-R-T Axes : 032 -07 035 degrees QTc Int : 416 ms NORMAL SINUS RHYTHM NONSPECIFIC ST ABNORMALITY ABNORMAL ECG WHEN COMPARED WITH ECG OF 27-NOV-2016 07:55, VENT. RATE HAS INCREASED BY 25 BPM Confirmed by EMMA ROOT, TALI ([id number]) on 12/10/2018 11:36:27 AM Referred By: Confirmed By:TALI CARTER MD
[2018-12-10 12:00] LABS: BASO % 0.9 % (0-2.0); EOS % 1.6 % (0-4.5); HEMATOCRIT 40.8 % (32.4-45.2); HEMOGLOBIN 13.8 GM/dL (10.7-15.3); LYMPH % 20.8 % (8-40); MCH 29.6 pg (25.7-33.7); MCHC 33.8 g/dl (32.0-36.0); MEAN CELL VOLUME 87.5 fl (80-96); MONO % 6.3 % (3.8-10.2); NEUT % 70.4 % (42.8-82.8); PLATELET COUNT 357 K/MM3 (134-434); RBC 4.66 M/mm3 (3.60-5.2); RDW 14.7 % (11.6-15.6); WHITE BLOOD COUNT 11.3 K/mm3 (4.0-10.0)
[2018-12-10 12:05] LABS: ALBUMIN 3.9 g/dl (3.4-5.0); BILIRUBIN,TOTAL 0.4 mg/dL (0.2-1); BLOOD UREA NITROGEN 13.4 mg/dL (7-18); CALCIUM 9.4 mg/dL (8.5-10.1); CREATININE 1.2 mg/dL (0.55-1.3); POTASSIUM 4.2 mmol/L (3.5-5.1); TOT PROT 7.7 g/dl (6.4-8.2)
--- NOTE | 2018-12-10 12:18 | PDOC ---
Attending Attestation - Resident Resident Name: John Swartz - ED Attending Attestation I have performed the following: I have examined & evaluated the patient, The case was reviewed & discussed with the resident, I agree w/resident's findings & plan, Exceptions are as noted - HPI HPI: 68 years old with past medical history significant for hypertension high cholesterol presents to the emergency department complaining of weakness and elevated blood pressure. This morning woke up with some bilateral shoulder discomfort and mild shortness of breath which has since resolved nonexertional nonradiating no discrete chest pain. Symptoms are mild intermittent and have an self-limiting Insert my ROS statement. - Physicial Exam PE: 12/10/18 12:19 Vitals: Triage Vital signs reviewed General Appearance: no acute distress, well nourished well developed, Head: Atraumatic, Neck: Supple;No Nucal rigidity Chest Wall: Nontender Cardiac: Regular rate and rhythym, no murmurs, no rubs, no gallops, Lungs: Clear to auscultation bilateral, good air movement bilaterally, Abdomen: Soft, non distended, normal bowel sounds, non tender to palpation Extremities: Full range of motion to all extremities, no cyanosis, clubbing, or edema Skin: Warm and dry, no rashes or lesions, no rash, no petechiae Psych: normal mood, normal affect - Medical Decision Making 12/10/18 12:20 68 years old with complaint of elevated blood pressure now normal in the emergency department and shoulder discomfort atypical presentation we'll check labs EKG observe and reassess Dr. Sotomayor to follow up labs and reasses Heart Score/ECG Review - ECG Impressions Comment:: 12/10/18 12:22 EKG performed at 1058 demonstrates normal sinus rhythm no ST elevations no T- wave inversions Interpreted by me.
[2018-12-10 12:49] LABS: EPI CELLS 3.8 /HPF (0-5/HPF); HYALINE CASTS 2 /lpf (0-8); URINE APPEARANCE CLEAR; URINE BACTERIA 228.1 /hpf (NEGATIVE); URINE BILIRUBIN NEGATIVE (NEGATIVE); URINE COLOR YELLOW; URINE GLUCOSE (UA) NEGATIVE (NEGATIVE); URINE KETONE NEGATIVE (NEGATIVE); URINE LEUK ESTERASE 1+ (NEGATIVE); URINE NITRITE NEGATIVE (NEGATIVE); URINE PROTEIN NEGATIVE (NEGATIVE); URINE UROBILINOGEN 0.2 mg/dL (0.2-1.0); URINE WBC 6 /hpf (0-5)
[2018-12-10] MEDS ORDERED: NITROFURANTOIN MACROCRYSTAL 50 MG CAPSULE (FP) PO SCH (13:45)
[2018-12-10] MEDS ORDERED: NITROFURANTOIN MACROCRYSTAL 50 MG CAPSULE (FP) ONE (13:50)
[2018-12-10 14:28] LABS: URINE RBC 6.8 /hpf (0-4)
[2018-12-10 16:28] VITALS: BP 159/75; PULSE 77
== END 2018-12-10 14:13 | disposition home or self-care (01) ==
LOC: JER 10:18
DX: M62.81 Muscle weakness (generalized) (principal); R35.0 Frequency of micturition; M25.512 Pain in left shoulder; I10 Essential (primary) hypertension; E78.5 Hyperlipidemia, unspecified
CPT/HCPCS: 36415; 80053; 81003; 84484; 85025; 87086; 93005; 93010; 99283-25

== ENCOUNTER → 2022-03-06 | Day surgery (SDC) | payer OTHER | END | disposition home or self-care (01) | LOC: JRADUS-SUR 10:19 | PROVIDERS: ATTEND Family Medicine | PROC: 0H9U3ZX Drainage of Left Breast, Percutaneous Approach, Diagnostic (ICD-10-PCS; principal; 2022-03-06) | DX: C50.912 Malignant neoplasm of unspecified site of left female breast (principal) | CPT/HCPCS: 19083; 19084; 77065-TC; 87899; 88305-TC; 88341-TC; 88342-TC; A4648 ==

== ENCOUNTER 2022-04-30 04:40 | Day surgery (SDC) | payer OTHER ==
[2022-04-25 14:44] VITALS: BMI 23.6
[~2022-04-30 04:40] MED LIST: LIDOCAINE HCL 1%, 10 MG/ML (20ML VIAL) NR ONE
[2022-04-30] MEDS ORDERED: ISOSULFAN BLUE 50 MG/5 ML VIAL SQ ONE (14:27)
[2022-04-30] MEDS ORDERED: LIDOCAINE HCL 1%, 10 MG/ML (20ML VIAL) ONE (14:27)
[2022-04-30] MEDS ORDERED: MIDAZOLAM HCL 2 MG/2 ML SINGLE DOSE VIAL ONE (14:46)
[2022-04-30] MEDS ORDERED: PROPOFOL 20 ML ONE ×2 (14:46→17:20)
[2022-04-30] MEDS ORDERED: ceFAZolin SODIUM 1 GM VIAL IVPB ONE (16:45)
[2022-04-30] MEDS ORDERED: LIDOCAINE HCL 1%, 10 MG/ML (20ML VIAL) NR ONE (17:15)
[2022-04-30] MEDS ORDERED: ONDANSETRON 4 MG/2 ML VIAL IVPUSH PRN (18:05)
[2022-04-30] MEDS ORDERED: oxyCODONE HCL 5 MG TABLET PO PRN (18:05)
[2022-04-30] MEDS ORDERED: LACTATED RINGERS SOLUTION 1,000 ML IV SCH (18:15)
[2022-04-30 19:26] VITALS: RESP 18; TEMP 97.8
[2022-04-30 20:03] VITALS: BP 117/55; PULSE 85
== END 2022-04-30 19:55 | disposition home or self-care (01) ==
LOC: JASU-SURG 04:40
PROVIDERS: ATTEND Surgery
PROC: C71L1ZZ Planar Nuclear Medicine Imaging of Upper Chest Lymphatics using Technetium 99m (Tc-99m) (ICD-10-PCS; 2022-04-30)
PROC: 0HBU0ZZ Excision of Left Breast, Open Approach (ICD-10-PCS; principal; 2022-04-30 14:00)
PROC: 07B60ZX Excision of Left Axillary Lymphatic, Open Approach, Diagnostic (ICD-10-PCS; 2022-04-30 14:00)
DX: C50.912 Malignant neoplasm of unspecified site of left female breast (principal)
CPT/HCPCS: 78195-TC; 88307-TC; 94760; A9541

== ENCOUNTER 2023-05-06 04:28 | Day surgery (SDC) | payer OTHER ==
[2023-05-01 11:31] VITALS: BMI 24.5
[~2023-05-06 04:28] MED LIST changes: +LIDOCAINE 1% P/F 10 MG/ML VIAL INF ONE; -LIDOCAINE HCL 1%, 10 MG/ML (20ML VIAL) NR ONE
[2023-05-06] MEDS ORDERED: ONDANSETRON 4 MG/2 ML VIAL ONE (07:39)
[2023-05-06] MEDS ORDERED: SODIUM CHLORIDE 0.9% P/F 10 ML VIAL IJ ONE (07:39)
[2023-05-06] MEDS ORDERED: DEXAMETHASONE SOD PHOSPHATE 4 MG/1 ML VIAL ONE (07:39)
[2023-05-06] MEDS ORDERED: LIDOCAINE HCL/PF 2% SDV 5ML VIAL ONE (07:39)
[2023-05-06] MEDS ORDERED: SUCCINYLCHOLINE CHLORIDE 200 MG/10 ML SYRINGE ONE (07:39)
[2023-05-06] MEDS ORDERED: ceFAZolin SODIUM 1 GM VIAL ONE (07:39)
[2023-05-06] MEDS ORDERED: PROPOFOL 20 ML ONE ×2 (07:46→10:56)
[2023-05-06] MEDS ORDERED: MIDAZOLAM HCL 2 MG/2 ML SINGLE DOSE VIAL ONE (07:48)
[2023-05-06] MEDS ORDERED: ACETAMINOPHEN INJECTION 100 ML IVPB ONE (10:37)
[2023-05-06] MEDS ORDERED: HYDROmorphone HCl 2 MG/ML VIAL ONE (10:46)
[2023-05-06] MEDS ORDERED: ceFAZolin SODIUM 1 GM VIAL IVPB ONE (10:50)
[2023-05-06] MEDS ORDERED: LIDOCAINE 1% P/F 10 MG/ML VIAL INF ONE (11:09)
[2023-05-06] MEDS ORDERED: oxyCODONE HCL 5 MG TABLET PO PRN (11:51)
[2023-05-06] MEDS ORDERED: ONDANSETRON 4 MG/2 ML VIAL IVPUSH PRN (11:51)
[2023-05-06] MEDS ORDERED: LACTATED RINGERS SOLUTION 1,000 ML IV SCH (12:00)
[2023-05-06 13:58] VITALS: RESP 16
[2023-05-06 14:49] VITALS: BP 107/45; PULSE 77; TEMP 97.4
== END 2023-05-06 15:10 | disposition home or self-care (01) ==
LOC: JASU-SURG 04:28
PROVIDERS: ATTEND Surgery
PROC: 0HBT0ZZ Excision of Right Breast, Open Approach (ICD-10-PCS; principal; 2023-05-06 10:00)
DX: D05.11 Intraductal carcinoma in situ of right breast (principal)
CPT/HCPCS: 86850; 86900; 86901; 94760

== ENCOUNTER 2023-07-01 04:25 | Day surgery (SDC) | payer OTHER ==
[2023-06-23 10:25] VITALS: BMI 25.4
[2023-07-01] MEDS ORDERED: ONDANSETRON 4 MG/2 ML VIAL ONE (08:55)
[2023-07-01] MEDS ORDERED: DEXAMETHASONE SOD PHOSPHATE 4 MG/1 ML VIAL ONE (08:55)
[2023-07-01] MEDS ORDERED: KETOROLAC TROMETHAMINE 30 MG/1 ML VIAL ONE (08:55)
[2023-07-01] MEDS ORDERED: PROPOFOL 20 ML ONE (08:55)
[2023-07-01] MEDS ORDERED: LIDOCAINE HCL/PF 2% SDV 5ML VIAL ONE (08:55)
[2023-07-01] MEDS ORDERED: ROCURONIUM BROMIDE 50 MG/5 ML SYRINGE ONE (08:56)
[2023-07-01] MEDS ORDERED: MIDAZOLAM HCL 2 MG/2 ML SINGLE DOSE VIAL ONE (08:56)
[2023-07-01] MEDS ORDERED: SUCCINYLCHOLINE CHLORIDE 200 MG/10 ML SYRINGE ONE (08:56)
[2023-07-01] MEDS ORDERED: ISOSULFAN BLUE 50 MG/5 ML VIAL SQ ONE (09:22)
[2023-07-01] MEDS ORDERED: ceFAZolin SODIUM 1 GM VIAL ONE ×2 (09:49→17:57)
[2023-07-01] MEDS: ceFAZolin SODIUM 1 GM VIAL IVPB ONE (09:50)
[2023-07-01] MEDS ORDERED: ONDANSETRON 4 MG/2 ML VIAL IVPB PRN (10:55)
[2023-07-01] MEDS ORDERED: ACETAMINOPHEN 500 MG TABLET (FP) PO PRN (10:55)
[2023-07-01] MEDS ORDERED: PROMETHAZINE HCL 25 MG/1 ML VIAL IVPB PRN (11:07)
[2023-07-01] MEDS ORDERED: PHENYLEPHRINE HCL 10 MG/1 ML SINGLE DOSE VIAL ONE (12:06)
[2023-07-01] MEDS ORDERED: ACETAMINOPHEN INJECTION 100 ML IVPB ONE (12:51)
[2023-07-01] MEDS: ACETAMINOPHEN 1000 MG/100 ML BAG IVPB ONE (12:55)
[2023-07-01] MEDS: HYDROmorphone *PCA* 10MG/50ML DISP.SYRIN PCA SCH ×2 (14:26→16:30)
[2023-07-01] MEDS: LACTATED RINGERS SOLUTION 1,000 ML IV SCH (15:53)
[2023-07-01] MEDS ORDERED: HYDROmorphone *PCA* 10MG/50ML DISP.SYRIN ONE (16:16)
[2023-07-01] MEDS: LACTATED RINGERS SOLUTION 1,000 ML/1,000 ML INFUS.BAG IV SCH (16:30)
[2023-07-01] MEDS: CEFAZOLIN 1 GM in DEXTROSE 5%-WATER - 50 ML IVPB SCH (18:05)
[2023-07-01] MEDS: LACTATED RINGERS SOLUTION 1000 ML INFUS.BAG IV SCH (18:30)
[2023-07-02] MEDS: CEFAZOLIN 1 GM in DEXTROSE 5%-WATER - 50 ML IVPB SCH ×2 (02:37→09:47)
[2023-07-02 09:03] VITALS: BP 117/49; PULSE 98; RESP 17; TEMP 98.1
[2023-07-02] MEDS ORDERED: ceFAZolin SODIUM 1 GM VIAL ONE (09:13)
== END 2023-07-02 11:45 | disposition home or self-care (01) ==
LOC: JASUSAT 04:25 → J5S 20:13 → JASUSAT 07-02 11:45
PROVIDERS: ATTEND Surgery
PROC: 0HTT0ZZ Resection of Right Breast, Open Approach (ICD-10-PCS; principal; 2023-07-01 09:00)
PROC: 0HHT0NZ Insertion of Tissue Expander into Right Breast, Open Approach (ICD-10-PCS; 2023-07-01 09:00)
DX: D05.11 Intraductal carcinoma in situ of right breast (principal); C77.3 Secondary and unspecified malignant neoplasm of axilla and upper limb lymph nodes; Z98.82 Breast implant status; Z90.13 Acquired absence of bilateral breasts and nipples
CPT/HCPCS: 78195-TC; 88307-TC; 88309-TC; 88341-TC; 88342-TC; 94010; 94760; A9541; C1789; J0131; Q4116

== ENCOUNTER 2023-08-20 10:56 | Day surgery (SDC) | payer OTHER ==
[2023-08-20 11:07] VITALS: BMI 25.4
[2023-08-20] MEDS ORDERED: PIPERACILLIN/TAZOB 3.375 GM 3.375 GM/50 ML BAG IVPB ONE (11:58)
[2023-08-20 12:05] LABS: BASO % 0.3 % (0-2.0); EOS % 2.5 % (0-4.5); HEMATOCRIT 37.6 % (32.4-45.2); HEMOGLOBIN 13.2 GM/dL (10.7-15.3); LYMPH % 17.4 % (8-40); MEAN CELL VOLUME 88.7 fl (80-96); MEAN PLT VOLUME 7.6 fl (7.5-11.1); MONO % 6.6 % (3.8-10.2); NEUT % 73.2 % (42.8-82.8); PLATELET COUNT 513 10^3/uL (134-434); RBC 4.24 M/mm3 (3.60-5.2); RDW 14.3 % (11.6-15.6); WHITE BLOOD COUNT 12.6 K/mm3 (4.0-10.0)
[2023-08-20 12:07] LABS: INR 1.19 (0.83-1.09); PROTHROMBIN TIME (PATIENT) 13.4 SEC (9.7-13.0)
[2023-08-20] MEDS: PIPERACILLIN/TAZOB 3.375 GM 3.375 GM in DEXTROSE 5%-WATER - 50 ML IVPB ONE (12:08)
[2023-08-20 12:27] LABS: POTASSIUM 4.6 mmol/L (3.5-5.1)
[2023-08-20 12:28] LABS: CALCIUM 9.7 mg/dL (8.5-10.1)
[2023-08-20 12:29] LABS: ALBUMIN 3.2 g/dl (3.4-5.0)
[2023-08-20 12:32] LABS: CREATININE 1.2 mg/dL (0.55-1.3)
[2023-08-20 12:34] LABS: BILIRUBIN,TOTAL 0.3 mg/dL (0.2-1); TOT PROT 7.4 g/dl (6.4-8.2)
[2023-08-20] MEDS ORDERED: PROMETHAZINE HCL 25 MG/1 ML VIAL IVPB PRN (14:25)
[2023-08-20] MEDS ORDERED: ONDANSETRON 4 MG/2 ML VIAL IVPUSH PRN (14:25)
[2023-08-20] MEDS ORDERED: LACTATED RINGERS SOLUTION 1,000 ML IV SCH (14:30)
[2023-08-20] MEDS ORDERED: BUPIVACAINE HCL/PF 0.25% (2.5MG/ML) 10 ML VIAL ONE (14:31)
[2023-08-20] MEDS ORDERED: FENTANYL CITRATE/PF 50 MCG/ML VIAL ONE (14:36)
[2023-08-20] MEDS ORDERED: MIDAZOLAM HCL 2 MG/2 ML SINGLE DOSE VIAL ONE (14:36)
[2023-08-20] MEDS ORDERED: PROPOFOL 20 ML ONE (14:36)
[2023-08-20] MEDS ORDERED: LIDOCAINE HCL/PF 2% SDV 5ML VIAL ONE (14:37)
[2023-08-20] MEDS ORDERED: DEXAMETHASONE SOD PHOSPHATE 4 MG/1 ML VIAL ONE (14:52)
[2023-08-20] MEDS ORDERED: ACETAMINOPHEN INJECTION 100 ML IVPB ONE (14:52)
[2023-08-20] MEDS ORDERED: ONDANSETRON 4 MG/2 ML VIAL ONE (14:52)
[2023-08-20] MEDS ORDERED: KETOROLAC TROMETHAMINE 30 MG/1 ML VIAL ONE (14:52)
[2023-08-20 17:52] VITALS: RESP 20; TEMP 97.7
[2023-08-20 17:55] VITALS: BP 118/65; PULSE 64
== END 2023-08-20 17:45 | disposition home or self-care (01) ==
LOC: JER 10:56 → JASUSAT 13:59
PROVIDERS: ATTEND Plastic Surgery
PROC: 0J9600Z Drainage of Chest Subcutaneous Tissue and Fascia with Drainage Device, Open Approach (ICD-10-PCS; 2023-08-20)
PROC: 0HP Skin and Breast, Removal (ICD-10-PCS; principal; 2023-08-20 13:30)
PROC: 0JB60ZZ Excision of Chest Subcutaneous Tissue and Fascia, Open Approach (ICD-10-PCS; 2023-08-20 13:30)
DX: T85.79XA Infection and inflammatory reaction due to other internal prosthetic devices, implants and grafts, initial encounter (principal); Y82.8 Other medical devices associated with adverse incidents; Y92.9 Unspecified place or not applicable
CPT/HCPCS: 36415; 80053; 85025; 85610; 86850; 86900; 86901; 87070; 87186; 87205; 88300-TC; 88304-TC; 88342-TC; 93005; 93010; 94760; 99285-25; J0131